=== PATIENT | female | born 1965 | race Two or more races ===

== ENCOUNTER 2018-11-23 18:41 | Emergency (ER) ==
[2018-11-23 18:48] VITALS: BP 161/91; TEMP 99.4; BMI 25.2
[2018-11-23] MEDS ORDERED: TORADOL IM STA (19:12)
--- NOTE | 2018-11-23 19:12 | ED.PDOC ---
General ED Provider: Dr. CARTER WALLACE Chief Complaint: Ankle Pain/Injury Stated Complaint: r foot slipped backwards on the rug.Swelling,pain in ankle area bilat,Fib tib negative to palpation.Complete exam is limited due to the pain. Time Seen by Physician: 18:50 Mode of Arrival: Walk-In Information Source: Patient Exam Limitations: No limitations Primary Care Provider: AYLA VELÁZQUEZ Nursing and Triage Documentation Reviewed and Agree: Yes Does patient meet sepsis criteria?: No System Inflammatory Response Syndrome: Not Applicable Sepsis Protocol: For patient's 13 years and over: Temp is 96.8 and below OR 101 and greater Pulse >90 BPM Resp >20/minute Acutely Altered Mental Status Are patient's symptoms suggestive of a new infection, such as: -Pneumonia -Skin, Soft Tissue -Endocarditis -UTI -Bone, Joint Infection -Implantable Device -Acute Abdominal Infection -Wound Infection -Meningitis -Blood Stream Catheter Infection -Unknown Musculoskeletal Complaint Exam - Lower Extremity Complaint/Exam Location of Pain: Reports: Ankle Mechanism of Injury: Reports: Trauma Onset/Duration: today Symptoms Are: Still present Onset of Pain: Reports: Immediate Initial Severity: Moderate Current Severity: Moderate Location: Reports: Discrete Character: Reports: Aching Alleviating: Reports: Position, Cold Aggravating: Reports: Movement, Weight bearing Able to Bear Weight: No Associated Signs and Symptoms: Reports: Swelling, Redness DVT Risk Factors: Reports: None Septic Arthritis Risk Factors: Reports: None Related Surgical History: Reports: None Lower Extremity Findings: Present: Swelling, Tenderness, Limited range of motion NV Bundle Intact Distal to Injury: No Kofi's Sign Present: No Differential Diagnoses: Sprain Review of Systems - Review Of Systems Constitutional: Reports: No symptoms Eyes: Reports: Decreased acuity Ears, Nose, Mouth, Throat: Reports: No symptoms Respiratory: Reports: No symptoms Cardiac: Reports: No symptoms GI: Reports: No symptoms : Reports: No symptoms Musculoskeletal: Reports: Joint pain, Joint swelling, Muscle pain, Muscle stiffness Skin: Reports: No symptoms Neurological: Reports: No symptoms Endocrine: Reports: No symptoms Hematologic/Lymphatic: Reports: No symptoms All Other Systems: Reviewed and Negative Past Medical History - Past Medical History Previously Healthy: Yes Endocrine: Reports: None Cardiovascular: Reports: None Respiratory: Reports: None Hematological: Reports: None Gastrointestinal: Reports: None Genitourinary: Reports: None Neuro/Psych: Reports: Bipolar Disorder Musculoskeletal: Reports: None Cancer: Reports: None Last Menstrual Period: no longer having - Surgical History General Surgical History: Reports: None - Family History Family History: Reports: None - Social History Smoking Status: Never smoker Hx Substance Use: No Alcohol Screening: None - Immunizations Tetanus Shot up to Date: Yes Physical Exam - Physical Exam Appearance: Well-appearing Ill-appearing: None Pain Distress: Moderate Eyes: GINNY ENT: Ears normal Neck: Supple Respiratory: Airway patent Cardiovascular: RRR GI/: Soft Musculoskeletal: Normal strength, Limited ROM, Limited strength Skin: Warm Neurological: Sensation intact Psychiatric: Affect appropriate Critical Care Note - Critical Care Note Total Time (mins): 0 Course - Course Orders, Labs, Meds: Orders Category Date Time Status Ketorolac Tromethamine [Toradol] MEDS 11/23/18 19:12 Discontinued 30 mg IM ONCE STA ANKLE, RIGHT MIN 3 VIEWS Stat RADS 11/23/18 19:13 Completed Medications Discontinued Medications Generic Name Dose Route Start Last Admin Trade Name Freq PRN Reason Stop Dose Admin Ketorolac Tromethamine 30 mg 11/23/18 19:12 11/23/18 19:22 Toradol IM 11/23/18 19:13 30 mg ONCE STA Administration Vital Signs: Temp Pulse Resp BP Pulse Ox 11/23/18 18:41 99.4 F 92 H 20 161/91 H 98 Departure - Departure Time of Disposition: 19:55 Disposition: HOME SELF-CARE Discharge Problem: Ankle sprain Instructions: Crutch Instructions (ED) Condition: Good Pt referred to PMD for follow-up: Yes (follow in up to 3 days with orthopaedic spec,) IPMP verified?: No Allergies/Adverse Reactions: Allergies No Known Allergies Allergy (Unverified 11/23/18 18:44) Home Medications: Ambulatory Orders Atorvastatin Calcium [Lipitor] 20 mg PO DAILY 11/23/18 Disposition Discussed With: Patient, Family
--- NOTE | 2018-11-23 19:36 | DI ---
Exam: Three views of the right ankle. Comparison: None available. Reason for exam: Sprained ankle. FINDINGS: There is a tiny cortical irregularity seen adjacent to the talus on the lateral view. The talar dome appears intact. No abnormal widening of the medial or lateral clear space. Tiny osseous densities seen adjacent to the medial and lateral malleolus. The anatomic alignment as well maintai nkechi. Impression: 1. Tiny osseous densities adjacent to the medial and lateral malleolus may represent degenerative di sease versus tiny avulsion fracture. 2. Tiny cortical irregularity adjacent to the talus on the lateral view may be degenerative but may also represent avulsion. Recommend correlation with the site of patient's pain.
== END 2018-11-23 20:42 | disposition home or self-care (01) ==
LOC: ED 18:41
DX: S93.401A Sprain of unspecified ligament of right ankle, initial encounter (principal); W01.0XXA Fall on same level from slipping, tripping and stumbling without subsequent striking against object, initial encounter
CPT/HCPCS: 99283